=== PATIENT | female | born 1975 | race Caucasian/White ===

== ENCOUNTER 2020-07-20 10:11 | Day surgery (SDC) | payer MEDICAID ==
[~2020-07-20] VITALS: Ht 152.4 cm; Wt 68.0 kg
[2020-07-20] MEDS ORDERED: LACTATED RINGERS 1,000 ML IV SCH (11:00)
[2020-07-20] MEDS ORDERED: HYDR12.54 PO (11:10)
[2020-07-20] MEDS ORDERED: FERR325T22 PO (11:10)
[2020-07-20 11:39] LABS: BASOPHILS % 0.5 % (0.0-2.0); EOSINOPHILS % 3.2 % (0.0-5.0); HEMATOCRIT. 31.3 % (36.0-48.0); HEMOGLOBIN. 9.9 g/dL (12.0-16.0); LYMPHOCYTES % 28.3 % (20.0-50.0); MEAN CORPUSCULAR HEMOGLOBIN 23.6 pg (28.0-32.0); MEAN CORPUSCULAR VOLUME 74.3 fL (81.0-99.0); MEAN PLATELET VOLUME 9.4 fl (7.4-10.4); MONOCYTES % 9.4 % (2.0-8.0); NEUTROPHILS % 58.6 % (40.0-76.0); PLATELET 276 x1000/uL (130-400); RED BLOOD CELL COUNT 4.21 mill/uL (4.2-5.4); RED CELL DISTRIBUTION WIDTH 20.1 % (11.6-14.6)
[2020-07-20 11:45] LABS: CHLORIDE 106 mEq/L (98-107)
[2020-07-20 11:48] LABS: INR 1.1; PARTIAL THROMBOPLASTIN TIME 28.5 sec (23.4-31.0); PROTHROMBIN TIME 11.2 sec (9.6-11.0)
[2020-07-20 11:53] LABS: CLARITY URINE CLEAR (CLEAR); COLOR URINE YELLOW (YELLOW); KETONES URINE NEGATIVE (NEGATIVE); LEUKOCYTE ESTERASE URINE NEGATIVE (NEGATIVE); NITRITE URINE NEGATIVE (NEGATIVE); OCCULT BLOOD URINE NEGATIVE (NEGATIVE); PH URINE 5.5 (4.5-8.0); PROTEIN URINE NEGATIVE (NEGATIVE); SPECIFIC GRAVITY URINE 1.029 (1.005-1.030); UROBILINOGEN URINE 0.2 E.U./dL (0.2-1.0)
[2020-07-20 11:55] LABS: UCG SCREEN NEGATIVE
[2020-07-20] MEDS ORDERED: ROPIVACAINE HCL 10MG/ML 20 ML VIAL EPI ONE ×2 (13:03→13:12)
[2020-07-20] MEDS ORDERED: BUPIVACAINE HCL/PF 0.5% (5MG/ML) 10ML ONE (13:07)
[2020-07-20] MEDS ORDERED: VASOPRESSIN 20 UNIT/ML 1ML ONE (13:13)
[2020-07-20] MEDS ORDERED: FENTANYL CITRATE/PF 50MCG/ML 2ML VIAL ONE ×2 (13:13→15:58)
[2020-07-20] MEDS ORDERED: SUCCINYLCHOLINE CHLORIDE 200MG/10ML IV ONE (13:14)
[2020-07-20] MEDS ORDERED: MIDAZOLAM HCL 2 MG/2 ML VIAL ONE (13:14)
[2020-07-20] MEDS ORDERED: PROPOFOL 200MG/20ML VIAL IV ONE (13:14)
[2020-07-20] MEDS ORDERED: ROCURONIUM BROMIDE 10MG/ML VIAL 5ML IV ONE (13:14)
[2020-07-20] MEDS ORDERED: ONDANSETRON HCL 4MG/2ML INJ IV PRN (13:15)
[2020-07-20] MEDS ORDERED: HYDROCODONE/ACETAMINOPHEN 5/325MG TABLET PO PRN (13:15)
[2020-07-20] MEDS ORDERED: MORPHINE SULFATE 4 MG/ML CPJ (NOT FOR IM USE) IV PRN (13:15)
[2020-07-20] MEDS ORDERED: LIDOCAINE HCL/PF 1% 10 MG/ML 5ML VIAL ONE (13:24)
[2020-07-20] MEDS ORDERED: ESMOLOL HCL 10MG/ML 10ML VIAL IV ONE (13:26)
[2020-07-20] MEDS ORDERED: CEFAZOLIN SODIUM 1000MG/VIAL ONE (13:50)
[2020-07-20] MEDS ORDERED: LABETALOL HCL 5MG/ML VIAL 20ML IV ONE (14:14)
[2020-07-20] MEDS ORDERED: DEXAMETHASONE 4MG/ML 1ML VIAL ONE (15:51)
[2020-07-20] MEDS ORDERED: KETOROLAC 30MG/ML VIAL ONE (15:51)
[2020-07-20] MEDS ORDERED: ONDANSETRON HCL 4MG/2ML INJ ONE (15:51)
[2020-07-20] MEDS ORDERED: HYDRALAZINE 20MG/ML VIAL ONE (16:00)
[2020-07-20] MEDS: HYDROMORPHONE HCL/PF 2MG/ML CPJ IV PRN ×3 (16:18→16:50)
[2020-07-20 16:50] VITALS: BP 146/82
== END 2020-07-20 18:15 | disposition home or self-care (01) ==
LOC: OR 10:11
PROVIDERS: ATTEND Obstetrics & Gynecology
DX: N93.9 Abnormal uterine and vaginal bleeding, unspecified (principal); D25.1 Intramural leiomyoma of uterus; N72 Inflammatory disease of cervix uteri; I10 Essential (primary) hypertension; Z98.51 Tubal ligation status; Z98.890 Other specified postprocedural states; Z79.899 Other long term (current) drug therapy
CPT/HCPCS: 36415; 58552; 80048; 81003; 81025; 85025; 85610; 85730; 86850; 86900; 86901; 88305; J0330; J0360; J0690; J1100; J1170; J1885; J2250; J2405; J2704; J2795; J3010; J3490; S2900

== ENCOUNTER → 2020-07-20 | Outpatient (CLI) | payer MEDICAID ==
[~2020-07-20] MED LIST: FERR325T22 PO; HYDR12.54 PO
== END | disposition home or self-care (01) ==
LOC: LAB 09:20
PROVIDERS: ATTEND Obstetrics & Gynecology
DX: Z01.812 Encounter for preprocedural laboratory examination (principal); Z20.828 Contact with and (suspected) exposure to other viral communicable diseases
CPT/HCPCS: 87426